=== PATIENT | female | born 1985 | race Caucasian/White ===

== ENCOUNTER 2019-12-14 05:44 | Inpatient (IN) | payer OTHER ==
[~2019-12-14] VITALS: Ht 162.6 cm; Wt 67.0 kg
[2019-12-14] VITALS (14 sets, daily range): BP systolic 87–133; BP diastolic 50–81
[2019-12-14] MEDS ORDERED: LIDOCAINE 2%HCL (LOCAL ANESTH.) INJ 20ML MDV ONE (06:11)
[2019-12-14] MEDS ORDERED: LACT. RINGERS/OXYTOCIN 20UNITS 1,000 ML IV SCH ×2 (06:19→08:40)
[2019-12-14] MEDS ORDERED: LACTATED RINGER'S 1,000 ML IV SCH (06:19)
[2019-12-14] MEDS ORDERED: DERMOPLAST 60ML BOTTLE TOP PRN (06:30)
[2019-12-14] MEDS ORDERED: LIDOCAINE 2%HCL (LOCAL ANESTH.) INJ 20ML MDV ID ONE (06:30)
[2019-12-14] MEDS ORDERED: PHISODERM TOP SOLN 240ML BTL TOP PRN (06:30)
[2019-12-14] MEDS ORDERED: WITCH HAZEL-GLYCERIN PAD TOP PRN (06:30)
[2019-12-14] MEDS ORDERED: CARBOPROST TROMETHAMINE 250 MCG/1ML VIAL IM PRN (06:30)
[2019-12-14] MEDS ORDERED: METHYLERGONOVINE MALEATE 0.2 MG/ML AMP IM PRN (06:30)
[2019-12-14 07:26] LABS: Basophils # (auto) 0.1 10 ^3/uL (0-0.2); Basophils % (auto) 0.4 % (0.0-2.0); Eosinophils # (auto) 0 10 ^3/uL (0-0.8); Eosinophils % (auto) 0.1 % (0.0-7.0); Hematocrit 35.9 % (36.0-46.0); Hemoglobin 11.5 g/dL (12.2-16.2); Lymphocytes # (auto) 1.3 10 ^3/uL (0.4-5.4); Lymphocytes % (auto) 9.5 % (10.0-50.0); Mean Corpuscular Hemoglobin 31.1 pg (28.0-32.0); Mean Corpuscular Volume 96.9 fL (80.0-100.0); Monocytes # (auto) 0.4 10 ^3/uL (0-1.3); Monocytes % (auto) 2.7 % (0.0-12.0); Neutrophils # (auto) 12.3 10 ^3/uL (1.6-8.6); Neutrophils % (auto) 87.3 % (37.0-80.0); Nucleated Red Blood Cells % 0.1 %; Platelet Count (auto) 147 10^3/uL (140-450); Red Blood Cells 3.71 10^6/uL (4.0-5.20); Red Cell Distribution Width 15.6 % (11.8-14.3)
[2019-12-14] MEDS ORDERED: LACT. RINGERS/OXYTOCIN 20UNITS 500 ML IV ONE (07:40)
[2019-12-14 07:41] LABS: INR 0.91 (0.9-1.15); Partial Thromboplastin Time 23.9 sec (23.0-31.2)
[2019-12-14 07:43] LABS: Albumin 2.5 g/dL (3.4-5.0); Calcium 8.1 mg/dL (8.5-10.1); Potassium 4.2 mmol/L (3.5-5.1)
[2019-12-14] MEDS ORDERED: DIPHENOXYLATE W/ATROPINE 2.5 MG TAB PO PRN (07:45)
[2019-12-14] MEDS ORDERED: ONDANSETRON HCL 4 MG/2 ML VIAL IV PRN (07:45)
[2019-12-14 07:46] LABS: BUN/Creatinine Ratio 11.2; Bilirubin, Total 0.2 mg/dL (0.2-1.0); Uric Acid 5.6 mg/dL (2.6-6.0)
--- NOTE | 2019-12-14 08:00 | NUR ---
RECEIVED REPORT ON PATIENT FROM Le IVAN RN .
--- NOTE | 2019-12-14 08:15 | NUR ---
PER PATIENT SHE STATES SHE TALKED TO HER BY HER CELL PHONE AND SHE STATES HE KNOWS HER MOTHER TRINITY IS STAYING WITH HER FOR THE REST OF THE HOSPITAL STAY AND IS AWARE OF HOSPITAL RULES . PATIENT ALSO STATES "HE IS AN ASSHOLE AND JUST TRYING TO SNEAK IN" WHEAT CLEANER Carlita BECKMAN RN MADE AWARE THAT PATIENT TALKED TO HIS AND IS AWARE OF ALL RULES.
[2019-12-14] MEDS: ACETAMINOPHEN 325 MG TAB PO PRN ×2 (08:24→12:43)
--- NOTE | 2019-12-14 09:30 | NUR ---
KANIKA BECKMAN RN AND DIRECTOR OF UNIT ALSO AT BEDSIDE TO TALK TO PATIENT ON HOSPITAL STAY During Covid only one visitor is allowed. FOB was informed by patient and staff (material handler 1st shift RN, Dayshift RN, both day and retail shift supervisor charge gang weigher, Director JAYDEN and Security) on several occasions. PER DIRECTOR CARPENTER FOB was allowed to see at front window.
[2019-12-14] MEDS ORDERED: AMMONIA 0.33 ML INHALANT IN ONE ×2 (10:14→10:45)
--- NOTE | 2019-12-14 10:35 | NUR ---
Ambulation: Patient OOB with standby assistance by RN. Patient ambulated to bathroom with steady gait. Patient able to void without difficulty 400 ML AND COLLECTED URINE SPECIMEN AND SENT TO LAB FOR UDS. BLODD PRESSURE TAKEN BEFOR PTIENT GOT UP FROM BED TO GO TO BR AT 0959 123/58, PULSE 100 BPM AND RESP RATE 16 . PATIENT IN BATHROOM AT 1013 STATES SHE FEELS DIZZY CALLED FOR CHAIN TESTING MACHINE OPERATORKANIKA BECKMAN RN AND KANIKA MIRANDA IN ROOM TO HELP ASSIST PATIENT BACK TO BED VIA WHEELCHAIR. O2 GIVEN BY FACE MASK AT 15 L/ AND TOOK BP AT 1016 87/52/ PULSE 78 BPM PATIENT STATES SHE IS FEELING BETTER. GAVE ORANGE AND GAVE 500ML BOLUS OF LR. USED MEDICATION AMMONIA TO KEEP PATIENT ALERT AND ORIENTATED LORENA SHE WAS ON THE [employer] SEE MARS FOR TIME APPROX 1014 AM . BED LINEN CHANGED , FUNDUS FIRM AND 1 BELOW UMBILICUS FIRM AND SMALL BLEEDING CHANGED PAD ESTIMATE BLOOD ON BAD [address] ROCHE AND HE STATES GIVE 1000 ML OF LR AND ORDER A CBC. ORDERS CARRIED OUT . PAD WAS UNABLE TO BE WEIGHT RELATED TO LIQUID ALL OVER PAD POSSIBLE URINE FROM PATIENT ON TOILET.
[2019-12-14] MEDS ORDERED: LACTATED RINGER'S 1,000 ML IV ONE (10:45)
--- NOTE | 2019-12-14 10:56 | NUR ---
DEODORIZER OPERATOR AT BEDSIDE TO DO A CBC.
[2019-12-14] MEDS: DOCUSATE CALCIUM 240 MG CAP PO SCH (11:09)
[2019-12-14 11:20] LABS: Alcohol, Urine < 3.0 mg/dL (0-10); Amphetamine Screen, Urine NEGATIVE (NEGATIVE); Barbiturate Scree,Urine NEGATIVE (NEGATIVE); Benzodiazephine Screen, Urine NEGATIVE (NEGATIVE); Cannabinoid Screen, Urine NEGATIVE (NEGATIVE); Cocaine Screen, Urine NEGATIVE (NEGATIVE); Opiate Scree,Urine NEGATIVE (NEGATIVE); Phencyclidine Screen, Urine NEGATIVE (NEGATIVE)
[2019-12-14 11:23] LABS: Basophils # (auto) 0 10 ^3/uL (0-0.2); Basophils % (auto) 0.2 % (0.0-2.0); Eosinophils # (auto) 0 10 ^3/uL (0-0.8); Lymphocytes # (auto) 0.7 10 ^3/uL (0.4-5.4); Lymphocytes % (auto) 3.2 % (10.0-50.0); Mean Corpuscular Hemoglobin 32.3 pg (28.0-32.0); Mean Corpuscular Hgb Conc. 33.4 g/dL (32.0-36.0); Mean Corpuscular Volume 96.6 fL (80.0-100.0); Monocytes # (auto) 0.6 10 ^3/uL (0-1.3); Monocytes % (auto) 2.7 % (0.0-12.0); Neutrophils # (auto) 20.6 10 ^3/uL (1.6-8.6); Neutrophils % (auto) 93.9 % (37.0-80.0); Platelet Count (auto) 113 10^3/uL (140-450); Red Blood Cells 2.79 10^6/uL (4.0-5.20); Red Cell Distribution Width 15.6 % (11.8-14.3)
--- NOTE | 2019-12-14 11:57 | NUR ---
CALLED DR. ROCHE BACK WITH CBC RESULTS AND READ IT TO HIM , UDS NEG,EST BLOOD LOSS 50 ML UNABLE TO WEIGHT PAD. NEW ORDERS RECEIVED PER DR. ROCHE GIVE MEDICATION IRON 325 MG/PO/BID, KEFLEX 500 MG/PO/Q 6 HOURS.
[2019-12-14 12:01] LABS: Urine WBC None Seen /hpf (0 - 5)
[2019-12-14 12:22] LABS: Urine Bacteria NONE SEEN /hpf (None Seen); Urine Blood 3+ /uL (Negative)
[2019-12-14] MEDS: FERROUS SULFATE 325 MG TAB PO SCH ×2 (12:42→21:35)
[2019-12-14] MEDS: CEPHALEXIN 250 MG CAP PO SCH ×2 (12:43→17:50)
--- NOTE | 2019-12-14 12:55 | NUR ---
Ambulation: Patient OOB with standby assistance by RN. Patient ambulated to bathroom with steady gait. Patient able to void without difficulty 900 ml of urine output. [facility] teaching provided with returned demonstration by patient. Patient ambulated back to bed with steady gait and no distress noted.
[2019-12-14] MEDS: IBUPROFEN 600 MG TAB PO PRN ×2 (15:53→21:35)
--- NOTE | 2019-12-14 16:50 | NUR ---
assessment Patient is a 34 year old female who is alert and oriented. Prior to admission patient lived home with her family and was independent. I informed patient she has a ss consult for no PNC/limited/ concern for safety related to FOB agitated, aggressive. Patient informed me she had full care, Rita BOUDREAUX informed me she did have PNC and her records were sent over to the hospital. As for the FOB patient informed me he is Daniel Silverio and he is her . Patient informed me they spoke about patients mother being in the room during delivery and after since patients mother has assisted in over 16 deliveries. Patient informed me that her is just acting out because he wants to be with her and the baby. Patient informed me she has no safety concerns regarding FOB or about returning home on discharge. Patient informed me she feels very safe. Patient informed me they have all provisions for the baby. Rita BOUDREAUX informed me patient is bonding well and very involved with baby. Patient informed me she has good family support. Rita BOUDREAUX has been informed patient has been cleared by social service. Addendum: 12/14/19 at 1658 by Adele HAQ Amended: Links added.
--- NOTE | 2019-12-14 17:40 | NUR ---
Adele from Social Service called and states her note is charted and patient is clear when discharged to go home from Social Service stand point.
--- NOTE | 2019-12-14 17:58 | NUR ---
Patient declined covid in house test .
--- NOTE | 2019-12-14 20:00 | NUR ---
STATED TO PATIENT THAT SHE SHOULD FEEDING BABY WHEN BABY SHOWS SIGNS OF WANTING TO EAT OR TO FEED BABY WITHIN 3 HOURS.
[2019-12-15] MEDS: IBUPROFEN 600 MG TAB PO PRN (02:50)
[2019-12-15 02:58] VITALS: BP 114/61
[2019-12-15 05:06] LABS: RPR Non Reactive (Non Reactive)
[2019-12-15] MEDS: CEPHALEXIN 250 MG CAP PO SCH ×3 (05:19→12:19)
[2019-12-15 07:06] LABS: Rubella Antibodies, IgG 9.89 index (Immune >0.99)
[2019-12-15 07:25] VITALS: BP 126/59
[2019-12-15] MEDS ORDERED: PREN-96 PO (07:50)
--- NOTE | 2019-12-15 09:00 | NUR ---
IV removal IV DC'd with sterile technique, catheter fully intact. Pressure dressing applied to site. Patient tolerated procedure well. Discharged with aftercare instructions per MD. NOTE:
--- NOTE | 2019-12-15 10:15 | NUR ---
PATIENT TAKING SHOWER.
[2019-12-15 10:50] VITALS: BP 128/71
[2019-12-15] MEDS: DOCUSATE CALCIUM 240 MG CAP PO SCH (11:10)
[2019-12-15] MEDS: FERROUS SULFATE 325 MG TAB PO SCH (11:11)
[2019-12-15] MEDS: ACETAMINOPHEN 325 MG TAB PO PRN (11:12)
--- NOTE | 2019-12-15 13:00 | NUR ---
Discharge: Discharge instructions given as ordered. Pt encouraged to follow up with DRILL OPERATOR as instructed. All questions and concerns addressed. Patient verbalized understanding. Medication reconciliation completed and copy given to patient. Patient encouraged to prepare to depart unit.
--- NOTE | 2019-12-15 13:00 | NUR ---
PATIENT STATES SHE CALLED HER FOR A RIDE AND HE WILL BE PICKING HER UP AT APPROX 2 PM PER PATIENT.
--- NOTE | 2019-12-15 15:15 | NUR ---
Discharge: Patient taken to vehicle via ambulation with all personal belongings, accompanied by staff and family member. No distress noted at time of departure, no adverse changes in status since initial assessment.
== END 2019-12-15 15:15 | disposition home or self-care (01) | DRG 807 ==
LOC: LDRP 05:44
PROVIDERS: ADMIT Specialist; ATTEND Specialist
PROC: 10E0XZZ Delivery of Products of Conception, External Approach (ICD-10-PCS; principal; 2019-12-14)
DX: O80 Encounter for full-term uncomplicated delivery (principal); Z37.0 Single live birth; Z3A.37 37 weeks gestation of pregnancy; Z20.828 Contact with and (suspected) exposure to other viral communicable diseases
CPT/HCPCS: 36415; 59025; 59409; 80053; 80307; 81001; 81002; 84112; 84550; 85025; 85610; 85730; 86592; 86762; 86850; 86900; 86901; 87340; 87426; 96360; 96361; 96365; G0378; J2590